=== PATIENT | male | born 1995 | race Caucasian/White ===

== ENCOUNTER 2021-12-22 16:17 | Outpatient (CLI) | payer OTHER, SELFPAY ==
--- NOTE | ~2021-12-22 | MR_ITS ---
EXAMINATION: MR brain IAC wo con DATE: 12/22/2021 17:19 INDICATION: Muscle weakness. Decreased hearing in right ear. TECHNIQUE: Magnetic resonance imaging (MRI) of the brain, brainstem, and internal auditory canals was performed without intravenous contrast. COMPARISON: None. FINDINGS: There is no intracranial hemorrhage, acute infarction, or abnormal intracranial mass lesion . The ventricles are normal in size. The orbits are normal. The paranasal sinuses are clear. The inte rnal auditory canals and inner and middle ears are normal. The mastoid air cells are normal. IMPRESSION: 1. Normal brain. Reviewed, dictated and finalized at location A. IMPRESSION: 1. Normal brain.
== END 2021-12-22 16:18 | disposition home or self-care (01) ==
LOC: ANHIMG 16:18
PROVIDERS: PCP Physician Assistant; Visit Provider Physician Assistant
DX: M62.81 Muscle weakness (generalized) (principal); R25.3 Fasciculation
CPT/HCPCS: 70551

== ENCOUNTER 2022-02-17 09:27 | Outpatient (CLI) | payer OTHER, SELFPAY ==
--- NOTE | 2022-02-17 11:30 | NEURO_ITS ---
Impression: # Complains of twitching in muscles. # Normal nerve conduction study. # Normal needle/EMG exam. # Poor pain tolerance. # Clinical correlation recommended. Nerve Conduction Studies Anti Sensory Summary Table Stim Site NR Peak (ms) P-T Amp (?V) Site1 Site2 Delta-P (ms) Dist (cm) Cameron (m/s) Left Sup Fibular Anti Sensory (Ant Lat Mall) 14 cm 3.3 5.4 14 cm Ant Lat Mall 3.3 16.0 48 Right Sup Fibular Anti Sensory (Ant Lat Mall) 14 cm 3.6 10.2 14 cm Ant Lat Mall 3.6 16.0 44 Left Sural Anti Sensory (Lat Mall) Calf 3.7 14.2 Calf Lat Mall 3.7 16.0 43 Right Sural Anti Sensory (Lat Mall) Calf 3.3 15.4 Calf Lat Mall 3.3 16.0 48 Motor Summary Table Stim Site NR Onset (ms) O-P Amp (mV) Site1 Site2 Delta-0 (ms) Dist (cm) Cameron (m/s) Left Peroneal Motor (Vastus Med) Ankle 5.5 0.9 Popit Ankle 8.9 47.0 53 Popit 14.4 1.0 Right Peroneal Motor (Vastus Med) Ankle 5.2 2.0 Popit Ankle 8.7 43.0 49 Popit 13.9 1.8 Left Tibial Motor (Abd Altamirano Brev) Ankle 5.3 2.3 Knee Ankle 10.2 46.0 45 Knee 15.5 1.6 Right Tibial Motor (Abd Altamirano Brev) Ankle 5.1 5.4 Knee Ankle 9.4 46.0 49 Knee 14.5 5.3 F Wave Studies NR F-Lat (ms) L-R F-Lat (ms) Left Peroneal (Mrkrs) (EDB) 55.09 0.00 Right Peroneal (Mrkrs) (EDB) 55.09 0.00 Left Tibial (Mrkrs) (Abd Hallucis) 54.11 0.57 Right Tibial (Mrkrs) (Abd Hallucis) 54.69 0.57 EMG Side Muscle Nerve Root Ins Act Fibs Amp Dur Recrt Comment Right AntTibialis Dp Br Fibular L4-5 Nml Nml Nml Nml Nml Right Gastroc Tibial S1-2 Nml Nml Nml Nml Nml Right Fibularis Long Sup Br Fibular L5-S1 Nml Nml Nml Nml Nml Right Flex Dig Long Tibial L5-S2 Nml Nml Nml Nml Nml Right Ext Dig Brev Dp Br Fibular L5, S1 Nml Nml Nml Nml Nml Left AntTibialis Dp Br Fibular L4-5 Nml Nml Nml Nml Nml Left Gastroc Tibial S1-2 Nml Nml Nml Nml Nml Left Fibularis Long Sup Br Fibular L5-S1 Nml Nml Nml Nml Nml Left Flex Dig Long Tibial L5-S2 Nml Nml Nml Nml Nml Left Ext Dig Brev Dp Br Fibular L5, S1 Nml Nml Nml Nml Nml MTDD
== END 2022-02-17 09:28 | disposition home or self-care (01) ==
LOC: ANHNEURO 09:30
PROVIDERS: PCP Physician Assistant; Visit Provider Physician Assistant
DX: R25.3 Fasciculation (principal); M62.81 Muscle weakness (generalized)
CPT/HCPCS: 95886; 95910